=== PATIENT | female | born 1955 | race African-American/Black ===

== ENCOUNTER 2025-10-08 20:47 | Inpatient (IN) | payer MEDICARE, OTHER ==
[~2025-10-08] VITALS: Ht 167.6 cm; Wt 64.0 kg
--- NOTE | 2025-10-08 21:04 | ECG ---
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
--- NOTE | 2025-10-08 21:19 | ED.PDOC ---
HPI Comments 69-year-old female who came to ER via EMS for palpitations, chest pressure. she states that she was just released from [facility] for the same. Patient has history of hypertension, diabetes and SVTs. Patient has good compliance to her medications. States she was just relaxing at home when she developed sudden onset palpitations. Denies any chest pains. Upon arrival the paramedics patient was on SVT at 1 80s. Patient was given 5 mg of adenosine while on the way to the ER. Patient states she feels much better at this time of care. pt was admitted on 03/06/24 for cp, she has known hf, htn, hypothyroidism, dementia. pt is a poor historian. 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 Hx Family History Family History: Reviewed,noncontributory to illness Social History Smoker: Non-Smoker Alcohol: Denies ETOH Use Drugs: Denies Drug Use Lives In: Home Constitutional: denies: chills, diaphoresis, fatigue, fever, malaise, sweats, weakness, others EENTM: denies: blurred vision, double vision, ear bleeding, ear discharge, ear drainage, ear pain, ear ringing, eye pain, eye redness, hearing loss, mouth pain, mouth swelling, nasal discharge, nose bleeding, nose congestion, nose pain, photophobia, tearing, throat pain, throat swelling, voice changes, others Respiratory: denies: cough, hemoptysis, orthopnea, SOB at rest, shortness of breath, SOB with excertion, stridor, wheezing, others Cardiovascular: reports: palpitations; denies: chest pain, dizzy spells, diaphoresis, Dyspnea on exertion, edema, irregular heart beat, left arm pain, lightheadedness, PND, syncope, others Gastrointestinal: denies: abdomen distended, abdominal pain, blood streaked bowels, constipated, diarrhea, dysphagia, difficulty swallowing, hematemesis, melena, nausea, poor appetite, poor fluid intake, rectal bleeding, rectal pain, vomiting, others Genitourinary: denies: abnormal vagina bleeding, burning, dyspareunia, dysuria, flank pain, frequency, hematuria, incontinence, pain, , vagina discharge, urgency, others Neurological: denies: dizziness, fainting, headache, left sided numbness, left sided weakness, numbness, paresthesia, pre-existing deficit, right sided numbness, right sided weakness, seizure, speech problems, tingling, tremors, weakness, others Musculoskeletal: denies: back pain, gout, joint pain, joint swelling, muscle pain, muscle stiffness, neck pain, others Integumetry: denies: bruises, change in color, change in hair/nails, dryness, laceration, lesions, lumps, rash, wounds, others Allergic/Immunocompromised: denies: Difficulty Healing, Frequent Infections, Hives, Itching, others Hematologic/Lymphatic: denies: anemia, blood clots, easy bleeding, easy bruising, swollen glands, others Endocrine: denies: excessive hunger, excessive sweating, excessive thirst, excessive urination, flushing, intolerance to cold, intolerance to heat, unexplained weight gain, unexplained weight loss, others Psychiatric: denies: anxiety, bipolar disorder, depression, hopeless, panic disorder, schizophrenia, sleepless, suicidal, others Physical Exam General Appearance: No Apparent Distress, Normal HEENT: Normal ENT Inspection, Pharynx Normal, TMs Normal Neck: Full Range of Motion, Non-Tender, Normal, Normal Inspection Respiratory: Chest Non-Tender, Lungs Clear, No Accessory Muscle Use, No Respiratory Distress, Normal Breath Sounds Cardiovascular: No Edema, No JVD, No Murmur, No Gallop, Normal Peripheral Pulses, Regular Rate/Rhythm Breast Exam: Deferred Gastrointestinal: No Organomegaly, Non Tender, No Pulsatile Mass, Normal Bowel Sounds, Soft Genitalia: Deferred Pelvic: Deferred Rectal: Deferred Extremities: No calf tenderness, Normal capillary refill, Normal inspection, Normal range of motion, Non-tender, No pedal edema Musculoskeletal : Apperance: Normal 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 Was a procedure done?: No CP Differential Dx Differential Diagnosis: A-fib, Angina, Anxiety / Panic Attack, PSVT, Sinus Tachycardia X-Ray, Labs, Meds, VS Vital Signs Date Time Temp Pulse Resp B/P (MAP) Pulse Ox O2 Delivery O2 Flow Rate FiO2 10/08/25 21:19 93 10/08/25 20:53 97.7 97 16 148/86 (106) 93 97.7 10/08/25 20:53 Room Air* 0 21 10/08/25 20:49 97.9 91 14 131/87 95 97.9 10/08/25 20:47 93 Lab Test 10/08/25 22:05 10/08/25 21:00 Range/Units Troponin I High Sensitivity 21 15 </=34 ng/L White Blood Count 5.3 4.4-10.8 10^3/uL Red Blood Count 4.53 4.0-5.20 10^6/uL Hemoglobin 11.4 L 12.2-16.2 g/dL Hematocrit 36.0 36.0-46.0 % Mean Corpuscular Volume 79.6 L 80.0-100.0 fL Mean Corpuscular Hemoglobin 25.2 L 28.0-32.0 pg Mean Corpuscular Hemoglobin Concent 31.6 L 32.0-36.0 g/dL Red Cell Distribution Width 15.2 H 11.8-14.3 % Platelet Count 237 140-450 10^3/uL Mean Platelet Volume 9.4 6.9-10.8 fL Neutrophils (%) (Auto) 64.8 37.0-80.0 % Lymphocytes (%) (Auto) 26.9 10.0-50.0 % Monocytes (%) (Auto) 7.6 0.0-12.0 % Eosinophils (%) (Auto) 0.5 0.0-7.0 % Basophils (%) (Auto) 0.2 0.0-2.0 % Neutrophils # (Auto) 3.5 1.6-8.6 10 ^3/uL Lymphocytes # (Auto) 1.4 0.4-5.4 10 ^3/uL Monocytes # (Auto) 0.4 0-1.3 10 ^3/uL Eosinophils # (Auto) 0 0-0.8 10 ^3/uL Basophils # (Auto) 0 0-0.2 10 ^3/uL Nucleated Red Blood Cells 0.2 % Sodium Level 145 136-145 mmol/L Potassium Level 4.9 3.5-5.1 mmol/L Chloride Level 109 H 98-107 mmol/L Carbon Dioxide Level 26 20-31 mmol/L Anion Gap 10 5-15 Blood Urea Nitrogen 29 H 9-23 mg/dL Creatinine 0.95 0.550-1.02 mg/dL Glomerular Filtration Rate Calc 66 >90 mL/min BUN/Creatinine Ratio 30.5 H 10.0-20.0 Serum Glucose 284 H 74-106 mg/dL Calcium Level 9.7 8.7-10.4 mg/dL Time of 1ST Reevaluation: 21:16 Reevaluation 1ST: Unchanged Patient Education/Counseling: Diagnosis, Treatment Family Education/Counseling: No Family Present SEPSIS Sepsis Screen Date sepsis recognized/suspect: Oct 08, 2025 Time Sepsis recognized/suspect: 2052 Recent Procedure: No On Antibiotic Therapy: No Respiratory Rate >20: No Heart Rate >90: Yes Temp<36 C (96.8 F) or >38.3 C: No SBP <90 or MAP <65 mmHG: No New Acute Mental Status Change: No Is the patient on CPAP, BIPAP,: No Physician Orders Continuous Ekg Monitoring 08,12,16,20,00,04 (10/08/25 21:05) Chest Xray 1 View (10/08/25 21:05) Troponin-I Hs (10/09/25 00:05) Vital Signs Date Time Temp Pulse Resp B/P (MAP) Pulse Ox O2 Delivery O2 Flow Rate FiO2 10/08/25 21:19 93 10/08/25 20:53 97.7 97 16 148/86 (106) 93 97.7 10/08/25 20:53 Room Air* 0 21 10/08/25 20:49 97.9 91 14 131/87 95 97.9 10/08/25 20:47 93 Laboratory Tests Test 10/08/25 21:00 White Blood Count 5.3 10^3/uL (4.4-10.8) Departure 1 Departure Time of Disposition: 23:44 Impression: Primary Impression: Chest pain Additional Impressions: Palpitations Dementia Disposition: 09 ADMITTED INPATIENT Admit to: Tele Condition: Stable Discharged With: Self Critical Care Note Critical Care Time?: Yes (35 min-critical care time only) Stability Stability form required: No Heart Score Heart Score: Heart Score Response (Comments) Value History Moderate Suspicious 1 EKG Normal 0 Age >65 2 Risk Factors >3 or Hx ASHD 2 Troponin Normal limit 0 Total 5 I personally scribed for ANALIA GRANADOS MD ([email or web address]) on 10/08/25 at 21:19. Electronically submitted by Yeison Peña ([facility]). ANALIA GRANADOS MD Oct 08, 2025 21:19
[2025-10-08 21:31] LABS: Hematocrit 36.0 % (36.0-46.0); Hemoglobin 11.4 g/dL (12.2-16.2); Mean Corpuscular Hemoglobin 25.2 pg (28.0-32.0); Mean Corpuscular Volume 79.6 fL (80.0-100.0); Nucleated Red Blood Cells % 0.2 %
[2025-10-08 21:38] LABS: Potassium 4.9 mmol/L (3.5-5.1); Sodium 145 mmol/L (136-145)
[2025-10-08 21:39] LABS: Anion Gap 10 (5-15); Calcium 9.7 mg/dL (8.7-10.4); Carbon Dioxide 26 mmol/L (20-31)
[2025-10-08 21:44] LABS: BUN/Creatinine Ratio 30.5 (10.0-20.0)
--- NOTE | 2025-10-08 21:44 | DVH ---
EXAM: XY CHEST XRAY 1 VIEW HISTORY: palpitations TECHNIQUE: 1 view of the chest COMPARISON: XR CHEST 1 VIEW on DOS: 06/01/25 FINDINGS/IMPRESSION: LUNGS: No pleural effusion, consolidation, or pneumothorax. MEDIASTINUM: Unremarkable. BONES: No acute osseous abnormality. OTHER: None.
[2025-10-08 21:49] LABS: Blood Urea Nitrogen 29 mg/dL (9-23); Chloride 109 mmol/L (98-107); Glucose 284 mg/dL (74-106)
[2025-10-09] VITALS (7 sets, daily range): BP systolic 150–173; BP diastolic 78–99; PULSE 57–79; RESP 16–20; TEMP 97.7–98.2; O2SAT 96–100
[2025-10-09] MEDS ORDERED: cloNIDine 0.2 mg/24hr 7DAY PATCH TD ONE (07:00)
[2025-10-09] MEDS ORDERED: DEXTROSE (50%) 50ML SYRG IV PRN (10:30)
--- NOTE | 2025-10-09 10:35 | DVHHPRES ---
History of Present Illness Resident Creating Document: MELISSA REAL RESIDENT History of Present Illness 72-year-old female with past medical history of AFib/SVT, diabetes mellitus type 2, questionable CHF, hypertension and dementia for palpitations, and chest pressure. Patient is a poor historian. As per ER physician, she stated that she was just released from [facility] for the same. Patient has good compliance to her medications. States she was just relaxing at home when she developed sudden onset palpitations. Denies any chest pains. Upon arrival the paramedics patient was on SVT at 180s. Patient was given 5 mg of adenosine while on the way to the ER. Patient states she feels much better at this time of care. pt was admitted on 03/06/24 for chest pain. Past medical history AFib/SVT, diabetes mellitus type 2, questionable CHF, hypertension and dementia Past surgical history Poor historian Denied Social history Patient denies smoking, marijuana, alcohol intake Poor historian Medication history Unknown Allergic history Hydralazine Family history Unknown Review of Systems Review of Systems As described in the HPI Allergies: Coded Allergies: Hydralazine (Verified Allergy, Unknown, 10/08/25) Exam Vital Signs Vital Signs Date Time Temp Pulse Resp B/P (MAP) Pulse Ox O2 Delivery O2 Flow Rate FiO2 10/09/25 09:47 172/88 10/09/25 08:32 54 10/09/25 07:20 98.0 20 99 98.0 10/09/25 07:20 Room Air* 0 21 Exam Examination General Appearance: Alert, Oriented X3, Cooperative, No acute distress HEENT: EOMI Respiratory: Clear to auscultation, Normal air movement Cardiovascular: Regular rate, Normal S1, Normal S2 Abdominal: Normal bowel sounds Extremities: No cyanosis, No edema, Normal pulses, No tenderness/swelling Skin: No rashes, No breakdown Neuro: Normal speech and tone Labs/Xrays Labs Test 10/09/25 00:15 10/08/25 21:00 Range/Units Troponin I High Sensitivity 39 *H </=34 ng/L White Blood Count 5.3 4.4-10.8 10^3/uL Red Blood Count 4.53 4.0-5.20 10^6/uL Hemoglobin 11.4 L 12.2-16.2 g/dL Hematocrit 36.0 36.0-46.0 % Mean Corpuscular Volume 79.6 L 80.0-100.0 fL Mean Corpuscular Hemoglobin 25.2 L 28.0-32.0 pg Mean Corpuscular Hemoglobin Concent 31.6 L 32.0-36.0 g/dL Red Cell Distribution Width 15.2 H 11.8-14.3 % Platelet Count 237 140-450 10^3/uL Mean Platelet Volume 9.4 6.9-10.8 fL Neutrophils (%) (Auto) 64.8 37.0-80.0 % Lymphocytes (%) (Auto) 26.9 10.0-50.0 % Monocytes (%) (Auto) 7.6 0.0-12.0 % Eosinophils (%) (Auto) 0.5 0.0-7.0 % Basophils (%) (Auto) 0.2 0.0-2.0 % Neutrophils # (Auto) 3.5 1.6-8.6 10 ^3/uL Lymphocytes # (Auto) 1.4 0.4-5.4 10 ^3/uL Monocytes # (Auto) 0.4 0-1.3 10 ^3/uL Eosinophils # (Auto) 0 0-0.8 10 ^3/uL Basophils # (Auto) 0 0-0.2 10 ^3/uL Nucleated Red Blood Cells 0.2 % Sodium Level 145 136-145 mmol/L Potassium Level 4.9 3.5-5.1 mmol/L Chloride Level 109 H 98-107 mmol/L Carbon Dioxide Level 26 20-31 mmol/L Anion Gap 10 5-15 Blood Urea Nitrogen 29 H 9-23 mg/dL Creatinine 0.95 0.550-1.02 mg/dL Glomerular Filtration Rate Calc 66 >90 mL/min BUN/Creatinine Ratio 30.5 H 10.0-20.0 Serum Glucose 284 H 74-106 mg/dL Calcium Level 9.7 8.7-10.4 mg/dL SEPSIS Sepsis Screen Date sepsis recognized/suspect: Oct 09, 2025 Time Sepsis recognized/suspect: 717 Recent Procedure: No On Antibiotic Therapy: No Respiratory Rate >20: No Heart Rate >90: No Temp<36 C (96.8 F) or >38.3 C: No SBP <90 or MAP <65 mmHG: No New Acute Mental Status Change: No Is the patient on CPAP, BIPAP,: No Physician Orders Cardiac Diet-2gna,Lofat,Lochol (10/09/25 Breakfast) Admit (10/09/25 09:59) Oxygen By Nasal Cannula (10/09/25 09:59) Stat Ekg For Chest Pain (10/09/25 09:59) Notify Of Changes From Base (10/09/25 09:59) Website Project Manager For 24 Hours (10/09/25 09:59) Emergency Dysrhythmia Protocol (10/09/25 09:59) Rhythm Strips Once Every Shift (10/09/25 09:59) Vital Signs Date Time Temp Pulse Resp B/P (MAP) Pulse Ox O2 Delivery O2 Flow Rate FiO2 10/09/25 09:47 172/88 10/09/25 08:32 54 10/09/25 07:20 98.0 58 20 168/85 (112) 99 98.0 10/09/25 07:20 57 16 98 Room Air* 0 21 10/09/25 07:02 60 14 167/91 (116) 96 10/09/25 06:00 56 13 161/80 (107) 97 10/09/25 05:00 59 15 178/88 (118) 96 10/09/25 04:00 59 15 161/89 (113) 98 10/09/25 03:00 61 11 165/87 (113) 97 Medications Medications Dose Ordered Sig/Natasha Route Start Time Stop Time Status Last Admin Dose Admin Clonidine HCl 0.2 mg ONCE ONCE PO 10/09/25 07:15 10/09/25 07:16 DC 10/09/25 09:47 0.2 MG Assessment/Plan Assessment/Plan Assessment # SVT status post adenosine treatment, currently normal sinus rhythm # ?History of Afib -telemetry -EKG -Trops -Echo -cardiology # NSTEMI type 2 because of SVT causing demand ischemia -ekg -trops BNP CXR Cardiology consult # Widened mediastinum -CTA chest ordered # hypomagnesemia -replaced # DM2 -sliding scale insulin -HbA1c # HTN -lisinopril Code status discussed with the patient for greater than 21 minutes, Full Code Case discussed with Dr. Quiñones Plan discussed with: Patient, Other My Orders Orders - MELISSA REAL RESIDENT Procedure Category Date Status Time Admit ADMIT 10/09/25 Transmitted 09:59 Oxygen By Nasal RT 10/09/25 Transmitted Cannula 09:59 Stat Ekg For Chest [facility] 10/09/25 In Process Pain 09:59 Notify Md Of Changes [facility] 10/09/25 In Process From Base 09:59 Website Project Manager For [facility] 10/09/25 In Process 24 Hours 09:59 Emergency Dysrhythmia [facility] 10/09/25 In Process Protocol 09:59 Rhythm Strips Once [facility] 10/09/25 In Process Every Shift 09:59 Visit Coding STANDARD RES Billing Provider: ORLY QUIÑONES MD Date of Service if different f: Oct 09, 2025 Common Visit Codes: [id number] INP/OBS CARE (HIGH) Secondary Visit Codes: [id number] CARE PLAN 30 MINUTES MELISSA REAL RESIDENT Oct 09, 2025 10:35
[2025-10-09 11:16] LABS: Hematocrit 33.2 % (36.0-46.0); Hemoglobin 10.6 g/dL (12.2-16.2); Mean Corpuscular Hemoglobin 25.5 pg (28.0-32.0); Mean Corpuscular Volume 79.6 fL (80.0-100.0); Nucleated Red Blood Cells % 0.2 %
[2025-10-09 11:38] LABS: INR 1.11 (0.9-1.15); Partial Thromboplastin Time 26.3 SEC (24.5-34.5); Prothrombin Time 11.6 sec (9.3-11.8)
[2025-10-09 11:48] LABS: Alanine Aminotransferase 220 U/L (7-40); Albumin 3.4 g/dL (3.2-4.8); Alkaline Phosphatase 132 U/L (46-116); Anion Gap 8 (5-15); BUN/Creatinine Ratio 27.6 (10.0-20.0); Blood Urea Nitrogen 21 mg/dL (9-23); Calcium 9.3 mg/dL (8.7-10.4); Carbon Dioxide 29 mmol/L (20-31); Chloride 106 mmol/L (98-107); Glucose 233 mg/dL (74-106); Magnesium 1.4 mg/dL (1.6-2.6); Potassium 4.1 mmol/L (3.5-5.1); Sodium 143 mmol/L (136-145); Total Protein 5.6 g/dL (5.7-8.2)
[2025-10-09 11:49] LABS: Bilirubin, Total 0.8 mg/dL (0.2-1.0)
[2025-10-09] MEDS: ACCU-CHEK COMFORT CURVE STRIP VI SCH (11:52)
[2025-10-09] MEDS: InsuLIN REG 1unit/0.01ml Soln (100units/ml) SC SCH (11:59)
[2025-10-09] MEDS: LISINOPRIL 5 MG TAB PO ONE (12:03)
--- NOTE | 2025-10-09 12:31 | DVHSR ---
APPROVED REPORT EXAM: Two-dimensional and M-mode echocardiogram with Doppler and color Doppler. Blood Pressure: 172/88 mmHg INDICATION SVT RISK FACTORS Height: 5' 6", Weight: 160 DIMENSIONS LVDd 4.4 (3.8-5.7cm) LA (2D) 4.9 (1.9-4.0cm) Aortic Root 3.2 (2.0-3.7cm) LVDs 3.1 (2.5-4.0cm) LA (MM) (1.9-4.0cm) Aortic Cusp Exc 1.4 (1.5-2.0cm) EF (%) 58.0 (55-70%) Rt. Atrium 4.4 (1.9-4.0cm) Asc. Aorta cm IVSd 1.3 (0.7-1.1cm) RV (D) (1.8-2.4cm) PWd 1.4 (0.7-1.1cm) Mitral Valve Mitral Mitral Stenosis E wave 0.80m/s MV Mean GR. mmHg A wave 0.90m/s MV Peak GR. mmHg E/A ratio 0.9 2D MVA cm2 Aortic Valve Aortic Valve Aortic Stenosis V1 0.90m/s AO Mean GR. 4mmHg V2 1.40m/s AO Peak GR. 9mmHg LVOT Diameter 2.3 (1.8-2.4cm) Doppler KELLY 2.67cm2 Pulmonic Valve V2 0.60m/s Tricuspid Valve TR Velocity 2.20m/s RVSP 28mmHg Conclusion 1)There is moderate left ventricule hypertrophy with septal prominance and normal systolic function with estimated ejection fraction of 55-60%. Normal LV wall motion. Suggest cardiac MRI for further evaluation if clinically correlated 2)Normal right ventricule size and function with estimated RVSP of 25-30 mmHg 3)Biatrial dilatation 4)Trace mitral and tricuspid regurgitation
[2025-10-09 14:32] LABS: Triglycerides 54 mg/dL (< 150)
[2025-10-09 14:33] LABS: HDL Cholesterol 46 mg/dL (40-59)
[2025-10-09 14:34] LABS: Cholesterol 114 mg/dL (< 200)
[2025-10-09 14:38] LABS: Free T3 2.95 pg/mL (2.3-4.2); Free T4 (Free Thyroxine) 1.15 ng/dL (0.89-1.76)
[2025-10-09] MEDS: IOHEXOL 350 MG/ML 100ML IJ ONE (14:39)
[2025-10-09] MEDS: MAGNESIUM SULFATE 1GM/100ML 100 ML IV SCH (14:52)
--- NOTE | 2025-10-09 14:55 | DVH ---
EXAM: US LIVER HISTORY: transamintis COMPARISON: None TECHNIQUE: Multiple longitudinal and transverse sonographic images of the abdomen were obtained. Doppler was applied as indicated. FINDINGS: [PANCREAS]: The visualized portions of the pancreas are unremarkable. [AORTA]: Normal [LIVER]: 17.4 cm. normal echogenicity and echotexture. There is no focal hepatic mass lesion detected. [GALLBLADDER]: Unable to visualized [BILIARY TREE]: Common bile duct measures 0.5 cm in diameter. no intrahepatic biliary ductal dilatation. [ASCITES]: No free fluid is demonstrated. [VESSELS]: The main portal vein is patent on color Doppler evaluation. The inferior vena cava is patent on color Doppler evaluation. [RIGHT KIDNEY]: 10.7 cm. normal cortical echogenicity and normal contour. No hydronephrosis. IMPRESSION: 1. Limited evaluation secondary to body habitus No acute sonographic abnormality of the abdomen.
--- NOTE | 2025-10-09 16:14 | DVH ---
EXAM: CT CT ANGIO CHEST CONTRAST HISTORY: Widened mediastinum TECHNIQUE: CT angiogram was performed. CT scans at this facility use dose modulation, iterative reconstruction, and/or weight based dosing when appropriate to reduce radiation dose to as low as reasonably achievable. Coronal and sagittal reformations and maximum intensity projection images were created from the transaxial source data by the isotope technologist and workstation, as well as 3-D volume rendered images with MIPs. COMPARISON: XY CHEST XRAY 1 VIEW on DOS: 10/08/25 FINDINGS: [LOWER NECK]: Unremarkable [LYMPH NODES/MEDIASTINUM]: No abnormal lymph nodes by CT size criteria [CARDIOVASCULAR]: Slightly dilated left atrium, which may be seen in the setting of atrial fibrillation. Possible concentric left ventricular hypertrophy correlate with clinical exam. Coronary artery calcifications. No pericardial effusion. No aneurysmal dilatation of the great vessels. [PULMONARY ARTERIES]: No pulmonary arterial filling defect. Normal caliber of the main pulmonary artery. No evidence of elevated right heart pressures. [UPPER ABDOMEN]: Unremarkable. [MUSCULOSKELETAL]: Indeterminate opposing endplate sclerosis with severe intervertebral disc height loss at T8-9. Mild thoracic kyphosis. Question sequelae of prior fracture with the areas of mixed osseous lucency and sclerosis of the upper aspect of the sternal body. Multilevel degenerative change of the visualized spine. [CHEST WALL]: Diffuse body wall edema. [LUNG PARENCHYMA/PLEURAL SPACE]: Trace bilateral pleural effusions. No consolidation, suspicious focal airspace opacity, or suspicious nodules. IMPRESSION: 1. No CTA evidence of an acute pulmonary embolism. 2. Question sequelae of prior fracture with the areas of mixed osseous lucency and sclerosis of the upper aspect of the sternal body. 3. Slightly dilated left atrium, which may be seen in the setting of atrial fibrillation. 4. Trace bilateral pleural effusions. 5. No CT angiogram evidence of aortic dissection or intramural hematoma.
[2025-10-09] MEDS ORDERED: ASPI-543 PO (20:12)
[2025-10-09] MEDS ORDERED: NIFE1TAB30 PO (20:12)
[2025-10-09] MEDS ORDERED: ATOR-507 PO (20:12)
[2025-10-09] MEDS ORDERED: BENA40TA71 PO (20:12)
[2025-10-09] MEDS ORDERED: METO-159 PO (20:12)
[2025-10-09] MEDS ORDERED: METF-370 PO (20:12)
[2025-10-09] MEDS: LISINOPRIL 5 MG TAB PO SCH (21:55)
[2025-10-10] VITALS (9 sets, daily range): BP systolic 149–189; BP diastolic 86–108; PULSE 58–79; RESP 16–18; TEMP 97.7–98.8; O2SAT 95–100
[2025-10-10] MEDS ORDERED: hydrALAZINE HCL 20 MG/ML VL IV PRN (05:45)
[2025-10-10 06:33] LABS: Hematocrit 36.5 % (36.0-46.0); Hemoglobin 12.2 g/dL (12.2-16.2); Mean Corpuscular Hemoglobin 26.1 pg (28.0-32.0); Mean Corpuscular Volume 78.5 fL (80.0-100.0); Nucleated Red Blood Cells % 0.2 %
[2025-10-10 06:41] LABS: Albumin 3.6 g/dL (3.2-4.8); Alkaline Phosphatase 113 U/L (46-116); Anion Gap 8 (5-15); BUN/Creatinine Ratio 19.4 (10.0-20.0); Blood Urea Nitrogen 13 mg/dL (9-23); Calcium 9.2 mg/dL (8.7-10.4); Carbon Dioxide 27 mmol/L (20-31); Magnesium 1.9 mg/dL (1.6-2.6); Potassium 3.8 mmol/L (3.5-5.1); Sodium 143 mmol/L (136-145); Total Protein 5.9 g/dL (5.7-8.2)
[2025-10-10 06:42] LABS: Bilirubin, Total 1.0 mg/dL (0.2-1.0)
[2025-10-10 06:52] LABS: Urine Protein, UAD Negative (Negative)
[2025-10-10 06:57] LABS: Alanine Aminotransferase 153 U/L (7-40); Chloride 108 mmol/L (98-107); Glucose 114 mg/dL (74-106)
[2025-10-10 07:10] LABS: Amphetamine Screen, Urine Neg (NEGATIVE); Barbiturate Scree,Urine Neg (NEGATIVE); Benzodiazephine Screen, Urine Neg (NEGATIVE); Cannabinoid Screen, Urine Neg (NEGATIVE); Cocaine Screen, Urine Neg (NEGATIVE); Opiate Scree,Urine Neg (NEGATIVE); Phencyclidine Screen, Urine Neg (NEGATIVE)
[2025-10-10] MEDS ORDERED: LISINOPRIL 20 MG TAB PO ONE (07:30)
[2025-10-10] MEDS: LISINOPRIL 20 MG TAB PO ONE (08:34)
[2025-10-10] MEDS: METOPROLOL TARTRATE 50 MG TAB PO ONE (08:34)
[2025-10-10] MEDS ORDERED: LISINOPRIL 5 MG TAB PO SCH (10:00)
[2025-10-10] MEDS: ENOXAPARIN SOD 40 MG/0.4 ML SYRINGE SC SCH (11:37)
[2025-10-10] MEDS: FUROSEMIDE 20 MG TAB PO ONE (15:29)
[2025-10-10] MEDS ORDERED: DEXTROSE (50%) 50ML SYRG IV PRN (16:45)
--- NOTE | 2025-10-10 17:08 | DVHPNRES ---
Progress Note Date Seen: Oct 10, 2025 Resident Creating Document: LENY FENG RESIDENT Medical Necessity Reason Pt with a Central, PICC or Fol: No Subjective Review of Systems Haydee Richards is a 69-year old female with past medical history of diabetes mellitus, hypertension, ?SVT presented to the ED with the chief complaint of palpitations. The patient is a poor historian. Patient mentions that she was relaxing at home when she developed sudden onset palpitations. The patient has had similar episode of palpitations in the past for which he has been hospitalized. She denies any chest pain, shortness of breath or chest pressure. Upon arrival of the paramedics, patient was on SVT at 180s. Patient was given 5 mg of adenosine while on the way to the ER. Patient states she feels much better at this time of care. Past medical history: diabetes mellitus, hypertension, ?SVT, stroke in January 2025 Past surgical history: Denies Home medications: Metoprolol, nifedipine, benazepril, metformin, aspirin, Lipitor Social & Personal history: Lives with daughter, denies smoking, alcohol and drug use Allergies: Hydralazine Patient seen and examined at bedside. Patient is alert and oriented to time, place person and responding to all questions. Eyes: No Pain, No Vision change, No Conjunctivae inflammation, No Eyelid inflammation, No Redness ENT: No Ear pain, No Ear discharge, No Nose pain, No Nose discharge, No Nose congestion, No Mouth pain, No Mouth swelling, No Throat pain, No Throat swelling Cardiovascular: No Chest Pain, Palpitations, No Orthopnea, No Paroxysmal No Dyspnea, No Edema, No Lt Headedness Respiratory: No Cough, No Dry, No Shortness of breath, No SOB with exertion, No Wheezing, No Hemoptysis, No Pleuritic Pain, No Sputum Gastrointestinal: No Nausea, No Vomiting, No Abdominal Pain, No Diarrhea, No Constipation, No Melena, No Hematochezia Genitourinary: No Dysuria, No Frequency, No Incontinence, No Hematuria, No Retention . Objective vital signs Vital Sign Date Time Temp Pulse Resp B/P (MAP) Pulse Ox O2 Delivery O2 Flow Rate FiO2 10/10/25 15:29 156/98 10/10/25 13:00 98.1 58 18 98 98.1 10/10/25 08:00 Room Air* 0 21 Total Intake and Output 10/09/25 10/09/25 10/10/25 15:00 23:00 07:00 Intake Total 200 ml 400 ml Balance 200 ml 400 ml medications Current Medications Medications Dose Ordered Sig/Natasha Route Start Time Stop Time Status Last Admin Dose Admin Aspirin 81 mg DAILY PO 10/10/25 10:00 10/10/25 11:36 81 MG Enoxaparin Sodium 40 mg DAILY SC 10/10/25 10:00 10/10/25 11:37 40 MG Lisinopril 40 mg DAILY PO 10/11/25 10:00 Metoprolol Tartrate 100 mg BID PO 10/10/25 22:00 Nifedipine 60 mg DAILY PO 10/11/25 10:00 Examination General Appearance: Cooperative. Well developed. Well nourished. NAD Head Exam: Normal inspection Neck Exam: Normal inspection. Non-tender. Normal alignment Pulmonary/Respiratory: Chest non-tender. Clear bilateral breath sounds, no crackles, no wheezing. Cardiovascular/Chest: Regular rate and rhythm. No murmurs. No JVD. Peripheral Pulses: 2+ Radial (R). 2+ Radial (L). 2+ Pedal (R). 2+ Pedal (L) Abdominal Exam: Normal bowel sounds. Soft. normal abdomen, no visible veins, Nontender. No hepatospenomegaly. No masses Ankle Exam: Negative ankle edema Lower extremities: Negative lower extremity edema Neuro/Mental Status: A&O x4. Coherent. Thoughts/Psych: Normal thought pattern. Appropriate mood and affect. Good judgement and insight Skin Exam: Normal inspection. Normal color. Warm. Dry laboratory and microbiology Laboratory Tests 10/10/25 05:59 Test 10/10/25 05:59 Range/Units Serum Glucose 114 H 74-106 mg/dL Microbiology Date/Time Source Procedure Growth Status 10/10/25 00:17 Nose MRSA Screen - Final Complete Labs and/or images reviewed: Labs reviewed by me, Image(s) reviewed by me Problem List/Assessment/Plan Problem List/Assessment/Plan # SVT status post adenosine treatment, currently normal sinus rhythm # ?History of Afib # NSTEMI type 2 because of SVT causing demand ischemia -telemetry -EKG -Trops- 46,47,43 -Echo- moderate LVH, EF 55-60%,RVSP 25-30 mmHg, biatrial dilatation -cardiology consult placed -BNP 390 -chest xray -no acute changes -CTA-dilated left atrium, possible AFib, no PE # hypomagnesemia -replaced # diabetes mellitus type 2 with hyperglycemia -sliding scale insulin -HbA1c 6.6 # hypertensive heart disease -lisinopril 40 mg daily po -metoprolol 100mg bid po -nifedipine 60mg daily po # Transamitis -liver US- 17.4 cm. normal echogenicity and echotexture. There is no focal hepatic mass lesion detected. # History of stroke -contineu aspirin 81mg daily po DVT prophylaxis: Lovenox 40 mg daily SC Goals of care discussed with the patient for than 20 minutes, full code Plan discussed with Dr Israel Plan discussed with: Patient Visit Coding STANDARD RES Billing Provider: MARIELENA ISRAEL MD Date of Service if different f: Oct 10, 2025 Common Visit Codes: [id number] INP/OBS CARE(HIGH) LENY FENG RESIDENT Oct 10, 2025 17:08
[2025-10-10] MEDS: ACCU-CHEK COMFORT CURVE STRIP VI SCH (17:48)
[2025-10-10] MEDS: InsuLIN REG 1unit/0.01ml Soln (100units/ml) SC SCH (17:49)
[2025-10-10] MEDS: METOPROLOL TARTRATE 50 MG TAB PO SCH (20:58)
[2025-10-11] VITALS (8 sets, daily range): BP systolic 117–184; BP diastolic 94–107; PULSE 60–98; RESP 17–19; TEMP 97.8–98.5; O2SAT 95–100
[2025-10-11] MEDS: LISINOPRIL 20 MG TAB PO ONE (03:13)
[2025-10-11 06:34] LABS: Chloride 106 mmol/L (98-107); Sodium 143 mmol/L (136-145)
[2025-10-11 06:35] LABS: Anion Gap 8 (5-15); Calcium 9.3 mg/dL (8.7-10.4); Carbon Dioxide 29 mmol/L (20-31)
[2025-10-11 06:36] LABS: Potassium 3.4 mmol/L (3.5-5.1)
[2025-10-11 06:40] LABS: BUN/Creatinine Ratio 18.8 (10.0-20.0); Blood Urea Nitrogen 13 mg/dL (9-23)
[2025-10-11 06:42] LABS: Glucose 126 mg/dL (74-106)
[2025-10-11] MEDS: CHLORTHALIDONE 25 MG TAB PO ONE (14:15)
--- NOTE | 2025-10-11 16:04 | DVHPNRES ---
Progress Note Date Seen: Oct 11, 2025 Resident Creating Document: LENY FENG RESIDENT Medical Necessity Reason Pt with a Central, PICC or Fol: No Subjective Review of Systems Haydee Richards is a 69-year old female with past medical history of diabetes mellitus, hypertension, ?SVT presented to the ED with the chief complaint of palpitations. The patient is a poor historian. Patient mentions that she was relaxing at home when she developed sudden onset palpitations. The patient has had similar episode of palpitations in the past for which he has been hospitalized. She denies any chest pain, shortness of breath or chest pressure. Upon arrival of the paramedics, patient was on SVT at 180s. Patient was given 5 mg of adenosine while on the way to the ER. Patient states she feels much better at this time of care. Past medical history: diabetes mellitus, hypertension, ?SVT, stroke in January 2025 Past surgical history: Denies Home medications: Metoprolol, nifedipine, benazepril, metformin, aspirin, Lipitor Social & Personal history: Lives with daughter, denies smoking, alcohol and drug use Allergies: Hydralazine Patient seen and examined at bedside. Patient is alert and oriented to time, place person and responding to all questions. Eyes: No Pain, No Vision change, No Conjunctivae inflammation, No Eyelid inflammation, No Redness ENT: No Ear pain, No Ear discharge, No Nose pain, No Nose discharge, No Nose congestion, No Mouth pain, No Mouth swelling, No Throat pain, No Throat swelling Cardiovascular: No Chest Pain, Palpitations, No Orthopnea, No Paroxysmal No Dyspnea, No Edema, No Lt Headedness Respiratory: No Cough, No Dry, No Shortness of breath, No SOB with exertion, No Wheezing, No Hemoptysis, No Pleuritic Pain, No Sputum Gastrointestinal: No Nausea, No Vomiting, No Abdominal Pain, No Diarrhea, No Constipation, No Melena, No Hematochezia Genitourinary: No Dysuria, No Frequency, No Incontinence, No Hematuria, No Retention 10/11/25- The patient was seen at bedside today. All labs charts, telemetry were reviewed. Her daughter was called and given all updates. Objective vital signs Vital Sign Date Time Temp Pulse Resp B/P (MAP) Pulse Ox O2 Delivery O2 Flow Rate FiO2 10/11/25 13:00 98.5 65 18 117/107 (110) 95 98.5 10/11/25 08:00 Room Air* 0 21 Total Intake and Output 10/10/25 10/10/25 10/11/25 15:00 23:00 07:00 Intake Total 600 ml 430 ml Balance 600 ml 430 ml medications Current Medications Medications Dose Ordered Sig/Natasha Route Start Time Stop Time Status Last Admin Dose Admin Aspirin 81 mg DAILY PO 10/10/25 10:00 10/11/25 10:09 81 MG Enoxaparin Sodium 40 mg DAILY SC 10/10/25 10:00 10/11/25 10:12 40 MG Lisinopril 40 mg DAILY PO 10/12/25 10:00 Diagnostic Test (Pha) 1 strip ACHS 10/10/25 17:00 10/11/25 12:53 1 STRIP Insulin Human Regular ACHS SC 10/10/25 17:00 10/11/25 12:55 3 UNITS Dextrose 50 ml UD PRN IV 10/10/25 16:45 Nifedipine 90 mg DAILY PO 10/12/25 10:00 Metoprolol Succinate 100 mg BID PO 10/11/25 22:00 Examination General Appearance: Cooperative. Well developed. Well nourished. NAD Head Exam: Normal inspection Neck Exam: Normal inspection. Non-tender. Normal alignment Pulmonary/Respiratory: Chest non-tender. Clear bilateral breath sounds, no crackles, no wheezing. Cardiovascular/Chest: Regular rate and rhythm. No murmurs. No JVD. Peripheral Pulses: 2+ Radial (R). 2+ Radial (L). 2+ Pedal (R). 2+ Pedal (L) Abdominal Exam: Normal bowel sounds. Soft. normal abdomen, no visible veins, Nontender. No hepatospenomegaly. No masses Ankle Exam: Negative ankle edema Lower extremities: Negative lower extremity edema Neuro/Mental Status: A&O x4. Coherent. Thoughts/Psych: Normal thought pattern. Appropriate mood and affect. Good judgement and insight Skin Exam: Normal inspection. Normal color. Warm. Dry laboratory and microbiology Laboratory Tests 10/11/25 02:52 10/10/25 05:59 Test 10/11/25 02:52 Range/Units Serum Glucose 126 H 74-106 mg/dL Microbiology Date/Time Source Procedure Growth Status 10/10/25 00:17 Nose MRSA Screen - Final Complete Labs and/or images reviewed: Labs reviewed by me, Image(s) reviewed by me Problem List/Assessment/Plan Problem List/Assessment/Plan # SVT status post adenosine treatment, currently normal sinus rhythm # ?History of Afib # NSTEMI type 2 because of SVT causing demand ischemia -telemetry -EKG -Trops- 46,47,43 -Echo- moderate LVH, EF 55-60%,RVSP 25-30 mmHg, biatrial dilatation -cardiology consult placed -BNP 390 -chest xray -no acute changes -CTA-dilated left atrium, possible AFib, no PE # hypomagnesemia -replaced # diabetes mellitus type 2 with hyperglycemia -sliding scale insulin -HbA1c 6.6 # hypertensive heart disease -lisinopril 40 mg daily po -metoprolol succinate 100mg bid po -nifedipine 60mg daily po # Transamitis -liver US- 17.4 cm. normal echogenicity and echotexture. There is no focal hepatic mass lesion detected. # History of stroke -continue aspirin 81mg po daily DVT prophylaxis: Lovenox 40 mg daily SC Goals of care discussed with the patient for than 20 minutes, full code Plan discussed with Dr Israel Plan discussed with: Patient Visit Coding STANDARD RES Billing Provider: MARIELENA ISRAEL MD Date of Service if different f: Oct 11, 2025 Common Visit Codes: [id number] INP/OBS CARE(HIGH) LENY FENG RESIDENT Oct 11, 2025 16:04
[2025-10-11] MEDS: POTASSIUM EFFERVESENT TAB 25 MEQ PO ONE (16:23)
[2025-10-11] MEDS: METOPROLOL SUCCINATE XL 50 MG TAB PO SCH (21:07)
[2025-10-12] VITALS (8 sets, daily range): BP systolic 145–210; BP diastolic 90–111; PULSE 59–86; RESP 16–17; TEMP 97.3–98.4; O2SAT 97–99
[2025-10-12 07:08] LABS: Anion Gap 10 (5-15); Carbon Dioxide 28 mmol/L (20-31); Chloride 104 mmol/L (98-107); Potassium 3.6 mmol/L (3.5-5.1); Sodium 142 mmol/L (136-145)
[2025-10-12 07:09] LABS: Calcium 9.9 mg/dL (8.7-10.4)
[2025-10-12 07:14] LABS: BUN/Creatinine Ratio 15.1 (10.0-20.0); Blood Urea Nitrogen 13 mg/dL (9-23)
[2025-10-12 07:16] LABS: Glucose 144 mg/dL (74-106)
[2025-10-12] MEDS: CHLORTHALIDONE 25 MG TAB PO ONE (09:41)
[2025-10-12] MEDS: LISINOPRIL 20 MG TAB PO SCH (09:43)
[2025-10-12] MEDS: POLYETHYLENE GLYCOL 17 GM PWDR PO ONE (15:26)
--- NOTE | 2025-10-12 15:36 | DVHPNRES ---
Progress Note Date Seen: Oct 12, 2025 Resident Creating Document: LENY FENG RESIDENT Medical Necessity Reason Pt with a Central, PICC or Fol: No Subjective Review of Systems Haydee Richards is a 69-year old female with past medical history of diabetes mellitus, hypertension, SVT,Afib presented to the ED with the chief complaint of palpitations. The patient is a poor historian. Patient mentions that she was relaxing at home when she developed sudden onset palpitations. The patient has had similar episode of palpitations in the past for which he has been hospitalized. She denies any chest pain, shortness of breath or chest pressure. Upon arrival of the paramedics, patient was on SVT at 180s. Patient was given 5 mg of adenosine while on the way to the ER. Per the patient's daughter, she was diagnosed with AFib in 2013 and was on Eliquis which was discontinued a few months back. Patient states she feels much better at this time of care. Past medical history: diabetes mellitus, hypertension, ?SVT, stroke in January 2025 Past surgical history: Denies Home medications: Metoprolol, nifedipine, benazepril, metformin, aspirin, Lipitor Social & Personal history: Lives with daughter, denies smoking, alcohol and drug use Allergies: Hydralazine Patient seen and examined at bedside. Patient is alert and oriented to time, place person and responding to all questions. Eyes: No Pain, No Vision change, No Conjunctivae inflammation, No Eyelid inflammation, No Redness ENT: No Ear pain, No Ear discharge, No Nose pain, No Nose discharge, No Nose congestion, No Mouth pain, No Mouth swelling, No Throat pain, No Throat swelling Cardiovascular: No Chest Pain, Palpitations, No Orthopnea, No Paroxysmal No Dyspnea, No Edema, No Lt Headedness Respiratory: No Cough, No Dry, No Shortness of breath, No SOB with exertion, No Wheezing, No Hemoptysis, No Pleuritic Pain, No Sputum Gastrointestinal: No Nausea, No Vomiting, No Abdominal Pain, No Diarrhea, No Constipation, No Melena, No Hematochezia Genitourinary: No Dysuria, No Frequency, No Incontinence, No Hematuria, No Retention 10/11/25- The patient was seen at bedside today. All labs charts, telemetry were reviewed. Her daughter was called and given all updates. 10/12/25- the patient was seen at bedside today. All labs, charts and telemetry were reviewed. No new complaints. Cardiology saw the patient and started her on amiodarone 200 mg p.o. q12hrs and Eliquis 5 mg p.o. b.i.d. for atrial flutter. Super[facility] consult for arranging new PCP for the patient was placed, as the patient has a PCP in [place]. The patient will see in discharge Clinic. Objective vital signs Vital Sign Date Time Temp Pulse Resp B/P (MAP) Pulse Ox O2 Delivery O2 Flow Rate FiO2 10/12/25 12:50 98.1 64 17 149/93 (111) 98 98.1 10/12/25 08:00 Room Air* 0 21 Total Intake and Output 10/11/25 10/11/25 10/12/25 15:00 23:00 07:00 Intake Total 780 ml 1200 ml Balance 780 ml 1200 ml medications Current Medications Medications Dose Ordered Sig/Natasha Route Start Time Stop Time Status Last Admin Dose Admin Aspirin 81 mg DAILY PO 10/10/25 10:00 10/12/25 09:45 81 MG Enoxaparin Sodium 40 mg DAILY SC 10/10/25 10:00 10/12/25 09:44 40 MG Lisinopril 40 mg DAILY PO 10/12/25 10:00 10/12/25 09:43 40 MG Diagnostic Test (Pha) 1 strip ACHS 10/10/25 17:00 10/12/25 12:35 1 STRIP Insulin Human Regular ACHS SC 10/10/25 17:00 10/12/25 12:36 4 UNITS Dextrose 50 ml UD PRN IV 10/10/25 16:45 Metoprolol Succinate 100 mg BID PO 10/11/25 22:00 10/12/25 09:41 100 MG Nifedipine 90 mg HS PO 10/12/25 22:00 Chlorthalidone 12.5 mg DAILY@BREAKFAST PO 10/13/25 08:00 Polyethylene Glycol 17 gm DAILY PO 10/13/25 10:00 Examination General Appearance: Cooperative. Well developed. Well nourished. NAD Head Exam: Normal inspection Neck Exam: Normal inspection. Non-tender. Normal alignment Pulmonary/Respiratory: Chest non-tender. Clear bilateral breath sounds, no crackles, no wheezing. Cardiovascular/Chest: Regular rate and rhythm. No murmurs. No JVD. Peripheral Pulses: 2+ Radial (R). 2+ Radial (L). 2+ Pedal (R). 2+ Pedal (L) Abdominal Exam: Normal bowel sounds. Soft. normal abdomen, no visible veins, Nontender. No hepatospenomegaly. No masses Ankle Exam: Negative ankle edema Lower extremities: Negative lower extremity edema Neuro/Mental Status: A&O x4. Coherent. Thoughts/Psych: Normal thought pattern. Appropriate mood and affect. Good judgement and insight Skin Exam: Normal inspection. Normal color. Warm. Dry laboratory and microbiology Laboratory Tests 10/12/25 05:31 10/10/25 05:59 Test 10/12/25 05:31 Range/Units Serum Glucose 144 H 74-106 mg/dL Microbiology Date/Time Source Procedure Growth Status 10/10/25 00:17 Nose MRSA Screen - Final Complete Labs and/or images reviewed: Labs reviewed by me, Image(s) reviewed by me Problem List/Assessment/Plan Problem List/Assessment/Plan # SVT status post adenosine treatment, currently normal sinus rhythm # History of Afib # Atrial flutter # NSTEMI type 2 because of SVT causing demand ischemia -telemetry -Trops- 46,47,43 on admission -Echo- moderate LVH, EF 55-60%,RVSP 25-30 mmHg, biatrial dilatation -cardiology on board- started on amiodarone 200 mg p.o. b.i.d. and Eliquis 5 mg p.o. b.i.d. -BNP 390 -chest xray -no acute changes -CTA-dilated left atrium, possible AFib, no PE # Hypomagnesemia -replaced # Diabetes mellitus type 2 with hyperglycemia -sliding scale insulin -HbA1c 6.6 # Hypertensive heart disease -lisinopril 40 mg daily po -metoprolol 100mg bid po -nifedipine 60mg daily po # Transamitis -liver US- 17.4 cm. normal echogenicity and echotexture. There is no focal hepatic mass lesion detected. # History of stroke -continue aspirin 81mg daily po DVT prophylaxis: Lovenox 40 mg daily SC Goals of care discussed with the patient for than 20 minutes, full code Plan discussed with Dr Israel Plan discussed with: Patient My Orders My Orders Orders - LENY FENG RESIDENT Procedure Category Date Status Time Consult Care CONS 10/12/25 Transmitted Coordinator Polyethylene Glycol PHA 10/13/25 In Process 17g Powder (Miralax 10:00 Visit Coding STANDARD RES Billing Provider: MARIELENA ISRAEL MD Date of Service if different f: Oct 12, 2025 Common Visit Codes: [id number] INP/OBS CARE(HIGH) LENY FENG RESIDENT Oct 12, 2025 15:36
--- NOTE | 2025-10-12 17:18 | DVHINCON2 ---
Date of service: Oct 12, 2025 History of Present Illness HPI Patient is a 69-year-old female who was originally admitted to the hospital on October 08, 2025. Reportedly on-call cardiology was called early in admission (never came and never saw the patient). On October 12, 2025 I was called for Cardiology consultation. Originally the patient presented for palpitation and chest discomfort while relaxing at home. Reportedly EMS found the patient in ta chyarrhythmia and gave the patient adenosine. The response of adenosine is unknown. Patient is poor historian herself and information was obtained by reviewing the chart, communicating with staff and also calling and talking to the patient's daughter on the phone. Reportedly patient was on Eliquis up to few months ago for previous diagnosis of AFib (as per daughter it was diagnosed in 2013 in an outside facility). Reportedly, few weeks back, patient was in [facility] for tachyarrhythmia. Minimal available information mentions tachyarrhythmia nonresponding to adenosine. While being managed on telemetry, the patient had episodes of tachyarrhythmia. Review of the images revealed occasions of atrial flutter and possible SVTs. Patient denies any recent chest pains. Home Meds Reported Medications Benazepril Hcl (Benazepril Hcl) 40 Mg Tab, 40 MG PO DAILY for 30 Days, MG 10/09/25 Atorvastatin Calcium (Lipitor) 40 Mg Tab, 1 TAB PO QPM, #90 TAB 1 Refill 10/09/25 Metoprolol Tartrate (Metoprolol Tartrate) 100 Mg Tab, 100 MG PO BID for 30 Days, MG 10/09/25 Nifedipine (Nifedipine Er) 60 Mg Tab, 1 TAB PO DAILY, #30 TAB 5 Refills 10/09/25 Aspirin (Aspir-Low) 81 Mg Tab, 81 MG PO DAILY for 30 Days, MG 10/09/25 Metformin Hydrochloride (Metformin Hcl) 500 Mg Tab, 1000 MG PO IBID for 30 Days, MG 10/09/25 Past Medical History Others Past medical history includes diabetes mellitus, hypertension, old history of atrial fibrillation/SVT, questionable heart failure, hypothyroidism, questionable dementia and also history of CVA (January 2025). Patient Family History: Patient reports no known family medical history. Smoker: No Hx (Negative) Alocohol: None Drugs: None Lives with: Retirement Review of Systems Constitutional: No symptom reported Ears, Nose, & Throat: No symptom reported Eyes: No symptom reported Pulmonary/Respiratory: No symptom reported Cardiovascular: Palpitations All Other Systems Fourteen point review of system was performed. Relevant findings as per above and as per HPI. Otherwise negative. H&P Exam Vital Signs Vital Signs Date Time Temp Pulse Resp B/P (MAP) Pulse Ox O2 Delivery O2 Flow Rate FiO2 10/12/25 12:50 98.1 64 17 149/93 (111) 98 98.1 10/12/25 08:00 Room Air* 0 21 General Appeara: Well developed Head Exam: Normal inspection Eye Exam: bilateral eye PERRL Pulmonary/Respiratory: Normal inspection Cardiovascular/Chest: Normal inspection, Regular rate Peripheral Pulses: 2+ carotid (R), 2+ carotid (L), 2+ femoral (R), 2+ femoral (L) Abdominal Exam: Normal bowel sounds, Soft Neuro/Mental St: Alert, Oriented Eye contact/ Speech: Cooperative Labs/Xrays Labs Test 10/12/25 11:53 10/12/25 05:31 10/10/25 06:19 10/10/25 05:59 Range/Units POC Glucose 216 H 70-106 mg/dl Sodium Level 142 136-145 mmol/L Potassium Level 3.6 3.5-5.1 mmol/L Chloride Level 104 98-107 mmol/L Carbon Dioxide Level 28 20-31 mmol/L Anion Gap 10 5-15 Blood Urea Nitrogen 13 9-23 mg/dL Creatinine 0.86 0.550-1.02 mg/dL Glomerular Filtration Rate Calc 74 >90 mL/min BUN/Creatinine Ratio 15.1 10.0-20.0 Serum Glucose 144 H 74-106 mg/dL Calcium Level 9.9 8.7-10.4 mg/dL Free Thyroxine (T4) Calculated 1.23 0.89-1.76 ng/dL Urine Color Colorless Yellow Urine Clarity Clear Clear Urine pH 7.0 5.0-9.0 Urine Specific [place] 1.009 1.001-1.035 Urine Protein Negative Negative Urine Ketones Negative Negative Urine Blood Negative Negative /uL Urine Nitrite Negative Negative Urine Bilirubin Negative Negative Urine Urobilinogen Normal Negative mg/dL Urine Leukocyte Esterase Negative Negative /uL Urine RBC None seen 0 - 4 /hpf Urine Microscopic WBC 3 0-5 /HPF Urine Squamous Epithelial Cells None seen <5 /hpf Urine Bacteria None seen None Seen /hpf Urine Glucose Normal Normal mg/dL Urine Opiates Screen Neg NEGATIVE Urine Fentanyl Screen Neg NEGATIVE Urine Barbiturates Screen Neg NEGATIVE Urine Phencyclidine Screen Neg NEGATIVE Urine Amphetamines Screen Neg NEGATIVE Urine Benzodiazepines Screen Neg NEGATIVE Urine Cocaine Screen Neg NEGATIVE Urine Cannabinoids Screen Neg NEGATIVE White Blood Count 5.0 # 4.4-10.8 10^3/uL Red Blood Count 4.66 4.0-5.20 10^6/uL Hemoglobin 12.2 # 12.2-16.2 g/dL Hematocrit 36.5 36.0-46.0 % Mean Corpuscular Volume 78.5 L 80.0-100.0 fL Mean Corpuscular Hemoglobin 26.1 L 28.0-32.0 pg Mean Corpuscular Hemoglobin Concent 33.3 32.0-36.0 g/dL Red Cell Distribution Width 15.5 H 11.8-14.3 % Platelet Count 218 140-450 10^3/uL Mean Platelet Volume 9.2 6.9-10.8 fL Neutrophils (%) (Auto) 56.5 37.0-80.0 % Lymphocytes (%) (Auto) 36.8 10.0-50.0 % Monocytes (%) (Auto) 5.4 0.0-12.0 % Eosinophils (%) (Auto) 1.1 0.0-7.0 % Basophils (%) (Auto) 0.2 0.0-2.0 % Neutrophils # (Auto) 2.8 1.6-8.6 10 ^3/uL Lymphocytes # (Auto) 1.8 0.4-5.4 10 ^3/uL Monocytes # (Auto) 0.3 0-1.3 10 ^3/uL Eosinophils # (Auto) 0.1 0-0.8 10 ^3/uL Basophils # (Auto) 0 0-0.2 10 ^3/uL Nucleated Red Blood Cells 0.2 % Magnesium Level 1.9 1.6-2.6 mg/dL Total Bilirubin 1.0 0.2-1.0 mg/dL Aspartate Amino Transferase (AST) 50 H 13-40 U/L Alanine Aminotransferase (ALT) 153 H 7-40 U/L Alkaline Phosphatase 113 46-116 U/L Total Protein 5.9 5.7-8.2 g/dL Albumin 3.6 3.2-4.8 g/dL Test 12/7/25 14:23 10/09/25 10:45 Range/Units Troponin I High Sensitivity 43 *H </=34 ng/L Prothrombin Time 11.6 9.3-11.8 sec Prothrombin Time INR 1.11 0.9-1.15 Activated Partial Thromboplast Time 26.3 24.5-34.5 SEC Hemoglobin A1c 6.6 H <5.7 % A1C B-Type Natriuretic Peptide 390.39 0-100 pg/mL Triglycerides Level 54 < 150 mg/dL Cholesterol Level 114 < 200 mg/dL LDL Cholesterol 51 < 100 mg/dL HDL Cholesterol 46 40-59 mg/dL Thyroid Stimulating Hormone (TSH) 0.33 L 0.55-4.78 uIU/mL Free Triiodothyronine (T3) pg/mL 2.95 2.3-4.2 pg/mL Microbiology Date/Time Source Procedure Growth Status 10/10/25 00:17 Nose MRSA Screen - Final Complete Assessment/Plan Plan Patient is a 69-year-old female who was originally admitted to the hospital on October 08, 2025. Reportedly on-call cardiology was called early in admission (never came and never saw the patient). On October 12, 2025 I was called for Cardiology consultation. Originally the patient presented for palpitation and chest discomfort while relaxing at home. Reportedly EMS found the patient in tachyarrhythmia and gave the patient adenosine. The response of adenosine is unknown. Patient is poor historian herself and information was obtained by reviewing the chart, communicating with staff and also calling and talking to the patient's daughter on the phone. Reportedly patient was on Eliquis up to few months ago for previous diagnosis of AFib (as per daughter it was diagnosed in 2013 in an outside facility). Reportedly, few weeks back, patient was in [facility] for tachyarrhythmia. Minimal available information mentions tachyarrhythmia nonresponding to adenosine. While being managed on telemetry, the patient had episodes of tachyarrhythmia. Review of the images revealed occasions of atrial flutter and possible SVTs. Patient denies any recent chest pains. Not in acute distress. Lying flat in bed. No JVD. Mucosa is pink and wet. No carotid bruit. No goiter. Not using accessory muscles of breathing. Lungs are clear to auscultation. Cardiac: Regular, no thrill/gallop. Abdomen is soft. There is no gross mass/hepatomegaly. Bowel sound is positive. No abdominal tenderness. No peripheral edema. Dorsalis pedis is 2+ bilateral. Past medical history includes diabetes mellitus, hypertension, old history of atrial fibrillation/SVT, questionable heart failure, hypothyroidism, questionable dementia and also history of CVA (January 2025). Creatinine: 0.95 - 0.76 - 0.67 - 0.69 - 0.86 Potassium: 4.9 - 4.1 - 3.8 - 3.4 - 3.6 AST/ALT: 96/220 - 50/153 TSH: 0.33 Free T4: 1.15 - 1.23 (within normal limits) Free T3: 2.95 (within normal limits) Troponin (high sensitive): 15 - 21 - 39 - 46 - 47 - 43 BNP: 390.39 Urine drug screen: Negative Chest x-ray reported: FINDINGS/IMPRESSION: LUNGS: No pleural effusion, consolidation, or pneumothorax. MEDIASTINUM: Unremarkable. BONES: No acute osseous abnormality. OTHER: None. CT angio of the lungs reported: IMPRESSION: 1. No CTA evidence of an acute pulmonary embolism. 2. Question sequelae of prior fracture with the areas of mixed osseous lucency and sclerosis of the upper aspect of the sternal body. 3. Slightly dilated left atrium, which may be seen in the setting of atrial fibrillation. 4. Trace bilateral pleural effusions. 5. No CT angiogram evidence of aortic dissection or intramural hematoma. Liver ultrasound reported: IMPRESSION: 1. Limited evaluation secondary to body habitus No acute sonographic abnormality of the abdomen. Echocardiogram reported: 1)There is moderate left ventricule hypertrophy with septal prominance and normal systolic function with estimated ejection fraction of 55-60%. Normal LV wall motion. Suggest cardiac MRI for further evaluation if clinically correlated 2)Normal right ventricule size and function with estimated RVSP of 25-30 mmHg 3)Biatrial dilatation 4)Trace mitral and tricuspid regurgitation EKG revealed: Sinus rhythm with no specific ST-T changes Telemetry revealed: Sinus rhythm with occasions of atrial flutter and also occasions of SVT Patient is a 69-year-old female who presented with tachyarrhythmia. Does have old history of paroxysmal AFib and also history of SVT. Review of telemetry images is in favor of occasions of atrial flutter and minimal occasions of SVT. Does have history of diabetes mellitus/hypertension/CVA. Recognizing comorbidities, CHADS-VASc score is high and long-term full anticoagulation is also advised. Minimally elevated/flat troponin is assessed to reflect demand ischemia. Acute coronary syndrome is not considered. Atrial flutter SVT Diabetes mellitus Hypertension Old history of CVA (January 2025) Hypothyroidism Dementia, questionable Cardiac suggestion for management: Managed on telemetry Follow-up electrolytes and kidney function tests and correct abnormalities Start amiodarone: 200 mg twice daily Full anticoagulation (long-term): Eliquis at 5 mg twice daily is a good choice Further evaluation and management depends on the above and clinical course Thank you for consultation A total of 75 minutes was spent reviewing the patient record, examining the patient, making a diagnostic and therapeutic plan, discussing this plan with medical personnel, following up on diagnostic studies and following the patient for clinical stability excluding any and all procedures. At least 50% of this time was spent in direct, [id number] contact. Thank you for allowing me to participate in this patient's care. Further recommendations will depend on patient's clinical course. Please do not hesitate to contact me if you have any questions or concerns. This medical document was created using electronic medical record system with [employer] computerized dictation system. Although this document has been carefully reviewed, there may still be some phonetic and typographical errors. These areas are purely typographical due to the imperfection of the software programs, and do not reflect any compromise in the patient's medical care. Plan discussed with: Patient, Daughter (on the phone), Other (nurse and primary team) MLECHOR JORDAN MD Oct 12, 2025 17:18
[2025-10-12] MEDS: AMIODARONE HCL 200 MG TAB PO ONE (17:46)
[2025-10-12] MEDS: APIXABAN 5 MG TAB PO SCH (21:26)
[2025-10-13 01:00] VITALS: BP 188/116; PULSE 61; RESP 18; TEMP 97.2; O2SAT 100
[2025-10-13 05:00] VITALS: BP 146/90; PULSE 60; RESP 18; TEMP 97.2; O2SAT 96
--- NOTE | 2025-10-13 07:47 | DVHPN2 ---
Progress Note - Dictate Date Seen: Oct 13, 2025 Medical Necessity Reason Pt with a Central, PICC or Fol: No vital signs Vital Sign Date Time Temp Pulse Resp B/P (MAP) Pulse Ox O2 Delivery O2 Flow Rate FiO2 10/13/25 05:00 97.2 60 18 146/90 (108) 96 97.2 10/12/25 20:00 Room Air* 0 21 Total Intake and Output 10/12/25 10/12/25 10/13/25 15:00 23:00 07:00 Intake Total 625 ml 534 ml Balance 625 ml 534 ml medications Current Medications Medications Dose Ordered Sig/Natasha Route Start Time Stop Time Status Last Admin Dose Admin Aspirin 81 mg DAILY PO 10/10/25 10:00 10/12/25 09:45 81 MG Lisinopril 40 mg DAILY PO 10/12/25 10:00 10/12/25 09:43 40 MG Diagnostic Test (Pha) 1 strip ACHS 10/10/25 17:00 10/13/25 05:54 1 STRIP Insulin Human Regular ACHS SC 10/10/25 17:00 10/13/25 05:54 2 UNITS Dextrose 50 ml UD PRN IV 10/10/25 16:45 Metoprolol Succinate 100 mg BID PO 10/11/25 22:00 10/12/25 21:26 100 MG Nifedipine 90 mg HS PO 10/12/25 22:00 10/12/25 21:25 90 MG Chlorthalidone 12.5 mg DAILY@BREAKFAST PO 10/13/25 08:00 Polyethylene Glycol 17 gm DAILY PO 10/13/25 10:00 Amiodarone HCl 200 mg Q12HR PO 10/13/25 10:00 Apixaban 5 mg BID PO 10/12/25 22:00 10/12/25 21:26 5 MG laboratory and microbiology Laboratory Tests 10/12/25 05:31 10/10/25 05:59 Test 10/12/25 05:31 Range/Units Serum Glucose 144 H 74-106 mg/dL Assessment/Plan Patient is a 69-year-old female who was originally admitted to the hospital on October 08, 2025. Reportedly on-call cardiology was called early in admission (never came and never saw the patient). On October 12, 2025 I was called for Cardiology consultation. Originally the patient presented for palpitation and chest discomfort while relaxing at home. Reportedly EMS found the patient in tachyarrhythmia and gave the patient adenosine. The response of adenosine is unknown. Patient is poor historian herself and information was obtained by reviewing the chart, communicating with staff and also calling and talking to the patient's daughter on the phone. Reportedly patient was on Eliquis up to few months ago for previous diagnosis of AFib (as per daughter it was diagnosed in 2013 in an outside facility). Reportedly, few weeks back, patient was in [facility] for tachyarrhythmia. Minimal available information mentions tachyarrhythmia nonresponding to adenosine. While being managed on telemetry, the patient had episodes of tachyarrhythmia. Review of the images revealed occasions of atrial flutter and possible SVTs. Patient denies any recent chest pains. Not in acute distress. Lying flat in bed. No JVD. Mucosa is pink and wet. No carotid bruit. No goiter. Not using accessory muscles of breathing. Lungs are clear to auscultation. Cardiac: Regular, no thrill/gallop. Abdomen is soft. There is no gross mass/hepatomegaly. Bowel sound is positive. No abdominal tenderness. No peripheral edema. Dorsalis pedis is 2+ bilateral. Past medical history includes diabetes mellitus, hypertension, old history of atrial fibrillation/SVT, questionable heart failure, hypothyroidism, questionable dementia and also history of CVA (January 2025). Creatinine: 0.95 - 0.76 - 0.67 - 0.69 - 0.86 Potassium: 4.9 - 4.1 - 3.8 - 3.4 - 3.6 AST/ALT: 96/220 - 50/153 TSH: 0.33 Free T4: 1.15 - 1.23 (within normal limits) Free T3: 2.95 (within normal limits) Troponin (high sensitive): 15 - 21 - 39 - 46 - 47 - 43 BNP: 390.39 Urine drug screen: Negative Chest x-ray reported: FINDINGS/IMPRESSION: LUNGS: No pleural effusion, consolidation, or pneumothorax. MEDIASTINUM: Unremarkable. BONES: No acute osseous abnormality. OTHER: None. CT angio of the lungs reported: IMPRESSION: 1. No CTA evidence of an acute pulmonary embolism. 2. Question sequelae of prior fracture with the areas of mixed osseous lucency and sclerosis of the upper aspect of the sternal body. 3. Slightly dilated left atrium, which may be seen in the setting of atrial fibrillation. 4. Trace bilateral pleural effusions. 5. No CT angiogram evidence of aortic dissection or intramural hematoma. Liver ultrasound reported: IMPRESSION: 1. Limited evaluation secondary to body habitus No acute sonographic abnormality of the abdomen. Echocardiogram reported: 1)There is moderate left ventricule hypertrophy with septal prominance and normal systolic function with estimated ejection fraction of 55-60%. Normal LV wall motion. Suggest cardiac MRI for further evaluation if clinically correlated 2)Normal right ventricule size and function with estimated RVSP of 25-30 mmHg 3)Biatrial dilatation 4)Trace mitral and tricuspid regurgitation EKG revealed: Sinus rhythm with no specific ST-T changes Telemetry revealed: Sinus rhythm with occasions of atrial flutter and also occasions of SVT Patient is a 69-year-old female who presented with tachyarrhythmia. Does have old history of paroxysmal AFib and also history of SVT. Review of telemetry images is in favor of occasions of atrial flutter and minimal occasions of SVT. Does have history of diabetes mellitus/hypertension/CVA. Recognizing comorbidities, CHADS-VASc score is high and long-term full anticoagulation is also advised. Minimally elevated/flat troponin is assessed to reflect demand ischemia. Acute coronary syndrome is not considered. Atrial flutter SVT Diabetes mellitus Hypertension Old history of CVA (January 2025) Hypothyroidism Dementia, questionable Cardiac suggestion for management: Manage on telemetry Follow-up electrolytes and kidney function tests and correct abnormalities Control hypertension Amiodarone: 200 mg twice daily Full anticoagulation (long-term): On Eliis Cardiac cotto, can be followed as outpatient Further evaluation and management depends on the above and clinical course A total of 55 minutes was spent reviewing the patient record, examining the patient, making a diagnostic and therapeutic plan, discussing this plan with medical personnel, following up on diagnostic studies and following the patient for clinical stability excluding any and all procedures. At least 50% of this time was spent in direct, [id number] contact. Thank you for allowing me to participate in this patient's care. Further recommendations will depend on patient's clinical course. Please do not hesitate to contact me if you have any questions or concerns. This medical document was created using electronic medical record system with [employer] dictation system. Although this document has been carefully reviewed, there may still be some phonetic and typographical errors. These areas are purely typographical due to the imperfection of the software programs, and do not reflect any compromise in the patient's medical care. Plan discussed with: Patient, Other (nurse) MELCHOR JORDAN MD Oct 13, 2025 07:47
[2025-10-13 08:00] VITALS: PULSE 61; RESP 18; O2SAT 99
[2025-10-13] MEDS: CHLORTHALIDONE 25 MG TAB PO SCH (08:46)
[2025-10-13] MEDS: AMIODARONE HCL 200 MG TAB PO SCH (08:47)
[2025-10-13] MEDS: POLYETHYLENE GLYCOL 17 GM PWDR PO SCH (08:49)
[2025-10-13 08:59] VITALS: BP 132/77; PULSE 61; RESP 18; TEMP 98.1; O2SAT 99
[2025-10-13 12:57] VITALS: BP 147/91; PULSE 60; RESP 20; TEMP 98.1; O2SAT 98
--- NOTE | 2025-10-13 14:10 | DVHDSRES ---
Discharge Summary Date of Admission Resident Creating Document: LENY FENG RESIDENT Oct 09, 2025 at 09:59 Date of Discharge: Oct 13, 2025 Admitting Diagnosis NSTEMI Labs/Diagnostic Data: Laboratory Results Test 10/13/25 11:04 10/12/25 05:31 10/10/25 06:19 10/10/25 05:59 POC Glucose 247 mg/dl (70-106) Sodium Level 142 mmol/L (136-145) Potassium Level 3.6 mmol/L (3.5-5.1) Chloride Level 104 mmol/L (98-107) Carbon Dioxide Level 28 mmol/L (20-31) Anion Gap 10 (5-15) Blood Urea Nitrogen 13 mg/dL (9-23) Creatinine 0.86 mg/dL (0.550-1.02) Glomerular Filtration Rate Calc 74 mL/min (>90) BUN/Creatinine Ratio 15.1 (10.0-20.0) Serum Glucose 144 mg/dL (74-106) Calcium Level 9.9 mg/dL (8.7-10.4) Free Thyroxine (T4) Calculated 1.23 ng/dL (0.89-1.76) Urine Color Colorless (Yellow) Urine Clarity Clear (Clear) Urine pH 7.0 (5.0-9.0) Urine Specific [place] 1.009 (1.001-1.035) Urine Protein Negative (Negative) Urine Ketones Negative (Negative) Urine Blood Negative /uL (Negative) Urine Nitrite Negative (Negative) Urine Bilirubin Negative (Negative) Urine Urobilinogen Normal mg/dL (Negative) Urine Leukocyte Esterase Negative /uL (Negative) Urine RBC None seen /hpf (0 - 4) Urine Microscopic WBC 3 /HPF (0-5) Urine Squamous Epithelial Cells None seen /hpf (<5) Urine Bacteria None seen /hpf (None Seen) Urine Glucose Normal mg/dL (Normal) Urine Opiates Screen Neg (NEGATIVE) Urine Fentanyl Screen Neg (NEGATIVE) Urine Barbiturates Screen Neg (NEGATIVE) Urine Phencyclidine Screen Neg (NEGATIVE) Urine Amphetamines Screen Neg (NEGATIVE) Urine Benzodiazepines Screen Neg (NEGATIVE) Urine Cocaine Screen Neg (NEGATIVE) Urine Cannabinoids Screen Neg (NEGATIVE) White Blood Count 5.0 10^3/uL (4.4-10.8) Red Blood Count 4.66 10^6/uL (4.0-5.20) Hemoglobin 12.2 g/dL (12.2-16.2) Hematocrit 36.5 % (36.0-46.0) Mean Corpuscular Volume 78.5 fL (80.0-100.0) Mean Corpuscular Hemoglobin 26.1 pg (28.0-32.0) Mean Corpuscular Hemoglobin Concent 33.3 g/dL (32.0-36.0) Red Cell Distribution Width 15.5 % (11.8-14.3) Platelet Count 218 10^3/uL (140-450) Mean Platelet Volume 9.2 fL (6.9-10.8) Neutrophils (%) (Auto) 56.5 % (37.0-80.0) Lymphocytes (%) (Auto) 36.8 % (10.0-50.0) Monocytes (%) (Auto) 5.4 % (0.0-12.0) Eosinophils (%) (Auto) 1.1 % (0.0-7.0) Basophils (%) (Auto) 0.2 % (0.0-2.0) Neutrophils # (Auto) 2.8 10 ^3/uL (1.6-8.6) Lymphocytes # (Auto) 1.8 10 ^3/uL (0.4-5.4) Monocytes # (Auto) 0.3 10 ^3/uL (0-1.3) Eosinophils # (Auto) 0.1 10 ^3/uL (0-0.8) Basophils # (Auto) 0 10 ^3/uL (0-0.2) Nucleated Red Blood Cells 0.2 % Magnesium Level 1.9 mg/dL (1.6-2.6) Total Bilirubin 1.0 mg/dL (0.2-1.0) Aspartate Amino Transferase (AST) 50 U/L (13-40) Alanine Aminotransferase (ALT) 153 U/L (7-40) Alkaline Phosphatase 113 U/L (46-116) Total Protein 5.9 g/dL (5.7-8.2) Albumin 3.6 g/dL (3.2-4.8) Test 10/09/25 14:23 10/09/25 10:45 Troponin I High Sensitivity 43 ng/L (</=34) Prothrombin Time 11.6 sec (9.3-11.8) Prothrombin Time INR 1.11 (0.9-1.15) Activated Partial Thromboplast Time 26.3 SEC (24.5-34.5) Hemoglobin A1c 6.6 % A1C (<5.7) B-Type Natriuretic Peptide 390.39 pg/mL (0-100) Triglycerides Level 54 mg/dL (< 150) Cholesterol Level 114 mg/dL (< 200) LDL Cholesterol 51 mg/dL (< 100) HDL Cholesterol 46 mg/dL (40-59) Thyroid Stimulating Hormone (TSH) 0.33 uIU/mL (0.55-4.78) Free Triiodothyronine (T3) pg/mL 2.95 pg/mL (2.3-4.2) Other Laboratory Tests 10/12/25 05:31 10/10/25 05:59 Brief Hx & Hospital Course: Haydee Richards is a 69-year old female with past medical history of diabetes mellitus, hypertension, SVT,Afib presented to the ED with the chief complaint of palpitations. The patient is a poor historian. Patient mentions that she was relaxing at home when she developed sudden onset palpitations. The patient has had similar episode of palpitations in the past for which he has been hospitalized. She denies any chest pain, shortness of breath or chest pressure. Upon arrival of the paramedics, patient was on SVT at 180s. Patient was given 5 mg of adenosine while on the way to the ER. Per the patient's daughter, she was diagnosed with AFib in 2013 and was on Eliquis which was discontinued a few months back. Patient states she feels much better at this time of care. Brief hospitalization course: Her blood pressure was managed by increasing the home dose of her medications. Cardiology was consulted and after reviewing her telemetry, she was started on amiodarone 200 mg p.o. q.12 hours and Eliquis 500 mg p.o. b.i.d. for atrial flutter. The patient no longer complained of palpitations. She was cleared for discharge by Cardiology, and was discharged to the SNF in a stable condition. She was given clonidine 0.1 mg PO prn for elevated blood pressure. Placement Interviewer consult for arranging new PCP for the patient was placed, as the patient has a PCP in [place]. The patient will see in discharge Clinic. She was recommended to follow up with PCP and in discharge Clinic in 1-2 weeks. Past medical history: diabetes mellitus, hypertension, ?SVT, stroke in January 2025 Past surgical history: Denies Home medications: Metoprolol, nifedipine, benazepril, metformin, aspirin, Lipitor Social & Personal history: Lives with daughter, denies smoking, alcohol and drug use Allergies: Hydralazine General Appearance: Cooperative. Well developed. Well nourished. NAD Head Exam: Normal inspection Neck Exam: Normal inspection. Non-tender. Normal alignment Pulmonary/Respiratory: Chest non-tender. Clear bilateral breath sounds, no crackles, no wheezing. Cardiovascular/Chest: Regular rate and rhythm. No murmurs. No JVD. Peripheral Pulses: 2+ Radial (R). 2+ Radial (L). 2+ Pedal (R). 2+ Pedal (L) Abdominal Exam: Normal bowel sounds. Soft. normal abdomen, no visible veins, Nontender. No hepatospenomegaly. No masses Ankle Exam: Negative ankle edema Lower extremities: Negative lower extremity edema Neuro/Mental Status: A&O x4. Coherent. Thoughts/Psych: Normal thought pattern. Appropriate mood and affect. Good judgement and insight Skin Exam: Normal inspection. Normal color. Warm. Dry Operations or Procedures 1.PROCEDURE(s): LIVUS - LIVER REASON: transamintis ORDER NUMBER(s): [id number], ACCESSION NUMBER(s): [id number] EXAM: US LIVER HISTORY: transamintis COMPARISON: None TECHNIQUE: Multiple longitudinal and transverse sonographic images of the abdomen were obtained. Doppler was applied as indicated. FINDINGS: [PANCREAS]: The visualized portions of the pancreas are unremarkable. [AORTA]: Normal [LIVER]: 17.4 cm. normal echogenicity and echotexture. There is no focal hepatic mass lesion detected. [GALLBLADDER]: Unable to visualized [BILIARY TREE]: Common bile duct measures 0.5 cm in diameter. no intrahepatic biliary ductal dilatation. [ASCITES]: No free fluid is demonstrated. [VESSELS]: The main portal vein is patent on color Doppler evaluation. The inferior vena cava is patent on color Doppler evaluation. [RIGHT KIDNEY]: 10.7 cm. normal cortical echogenicity and normal contour. No hydronephrosis. IMPRESSION: 1. Limited evaluation secondary to body habitus No acute sonographic abnormality of the abdomen. 2.PROCEDURE(s): CTACH - CT ANGIO CHEST CONTRAST REASON: Widened mediastinum ORDER NUMBER(s): [id number], ACCESSION NUMBER(s): [id number] EXAM: CT CT ANGIO CHEST CONTRAST HISTORY: Widened mediastinum TECHNIQUE: CT angiogram was performed. CT scans at this facility use dose modulation, iterative reconstruction, and/or weight based dosing when appropriate to reduce radiation dose to as low as reasonably achievable. Coronal and sagittal reformations and maximum intensity projection images were created from the transaxial source data by the medicine technologist and workstation, as well as 3-D volume rendered images with MIPs. COMPARISON: XY CHEST XRAY 1 VIEW on DOS: 10/08/25 FINDINGS: [LOWER NECK]: Unremarkable [LYMPH NODES/MEDIASTINUM]: No abnormal lymph nodes by CT size criteria [CARDIOVASCULAR]: Slightly dilated left atrium, which may be seen in the setting of atrial fibrillation. Possible concentric left ventricular hypertrophy correlate with clinical exam. Coronary artery calcifications. No pericardial effusion. No aneurysmal dilatation of the great vessels. [PULMONARY ARTERIES]: No pulmonary arterial filling defect. Normal caliber of the main pulmonary artery. No evidence of elevated right heart pressures. [UPPER ABDOMEN]: Unremarkable. [MUSCULOSKELETAL]: Indeterminate opposing endplate sclerosis with severe intervertebral disc height loss at T8-9. Mild thoracic kyphosis. Question sequelae of prior fracture with the areas of mixed osseous lucency and sclerosis of the upper aspect of the sternal body. Multilevel degenerative change of the visualized spine. [CHEST WALL]: Diffuse body wall edema. [LUNG PARENCHYMA/PLEURAL SPACE]: Trace bilateral pleural effusions. No consolidation, suspicious focal airspace opacity, or suspicious nodules. IMPRESSION: 1. No CTA evidence of an acute pulmonary embolism. 2. Question sequelae of prior fracture with the areas of mixed osseous lucency and sclerosis of the upper aspect of the sternal body. 3. Slightly dilated left atrium, which may be seen in the setting of atrial fibrillation. 4. Trace bilateral pleural effusions. 5. No CT angiogram evidence of aortic dissection or intramural hematoma. 3.PROCEDURE(s): CXR1 - CHEST XRAY 1 VIEW REASON: palpitations ORDER NUMBER(s): [id number], ACCESSION NUMBER(s): [id number] EXAM: XY CHEST XRAY 1 VIEW HISTORY: palpitations TECHNIQUE: 1 view of the chest COMPARISON: XR CHEST 1 VIEW on DOS: 06/01/25 FINDINGS/IMPRESSION: LUNGS: No pleural effusion, consolidation, or pneumothorax. MEDIASTINUM: Unremarkable. BONES: No acute osseous abnormality. OTHER: None. Condition at Discharge: Fair Final Diagnosis/Problems List SVT status post adenosine treatment, currently normal sinus rhythm History of Afib Atrial flutter NSTEMI type 2 because of SVT causing demand ischemia Hypomagnesemia Diabetes mellitus type 2 with hyperglycemia Hypertensive heart disease Transamitis History of stroke Discharge Disposition: [facility] Facility Discharge Instruct/Medications Diet: Cardiac 2g Na,low cholest Activity: No Restrictions, As Tolerated Follow Up/Referral: follow up in dc clinic in 2 weeks follow up with PCP in 2 weeks follow up with cardiology Scheduled Aspirin (Aspir-Low), 81 MG PO DAILY, (Reported) Atorvastatin Calcium (Lipitor), 1 TAB PO QPM, (Reported) Benazepril Hcl (Benazepril Hcl), 40 MG PO DAILY, (Reported) Metformin Hydrochloride (Metformin Hcl), 1,000 MG PO IBID, (Reported) Metoprolol Tartrate (Metoprolol Tartrate), 100 MG PO BID, (Reported) Nifedipine (Nifedipine Er), 1 TAB PO DAILY, (Reported) Discharge Statement: "Patient was advised to return to the ER or call 911 if any headaches, dizziness, shortness of breath, chest pain, abdominal pain, bleeding, fevers, or worsening of medical condition. Patient was counseled about treatment plan, medications, possible side effects, patientverbalized understanding. All questions were answered to the best of my ability. This discharge took greater then 30 minutes in planning, reviewing documentation, counseling the patient, and discussing with other team members." ASSESSMENT ASSESSMENT Assessment SVT status post adenosine treatment, currently normal sinus rhythm History of Afib Atrial flutter NSTEMI type 2 because of SVT causing demand ischemia Hypomagnesemia Diabetes mellitus type 2 with hyperglycemia Hypertensive heart disease Transamitis History of stroke Visit Coding STANDARD RES Billing Provider: MARIELENA ISRAEL MD Date of Service if different f: Oct 13, 2025 Common Visit Codes: 13918-TKV/OBS DISCH DAY >30min LENY FENG RESIDENT Oct 13, 2025 14:10
== END 2025-10-13 16:30 | DRG 280 ==
LOC: EDBD 20:47 → ER 20:47 → OVERFLOW 10-09 09:59 → TELE-CENTR 10-09 16:15
PROVIDERS: ADMIT Student in an Organized Health Care Education/Training Program; ATTEND Student in an Organized Health Care Education/Training Program
DX: I47.10 Supraventricular tachycardia, unspecified (principal); I50.33 Acute on chronic diastolic (congestive) heart failure; I21.A1 Myocardial infarction type 2; I11.0 Hypertensive heart disease with heart failure; E11.65 Type 2 diabetes mellitus with hyperglycemia; F03.90 Unspecified dementia, unspecified severity, without behavioral disturbance, psychotic disturbance, mood disturbance, and anxiety; E03.9 Hypothyroidism, unspecified; I48.92 Unspecified atrial flutter; E83.42 Hypomagnesemia; I48.0 Paroxysmal atrial fibrillation; Z79.84 Long term (current) use of oral hypoglycemic drugs; Z79.899 Other long term (current) drug therapy; Z86.73 Personal history of transient ischemic attack (TIA), and cerebral infarction without residual deficits
CPT/HCPCS: 36415; 71045; 71275; 76705; 80048; 80053; 80061; 80307; 81001; 82962; 83036; 83735; 83880; 84439; 84443; 84481; 84484; 85025; 85610; 85730; 87081; 93005; 93306; 99291; G0378; J1815